=== PATIENT | female | born 1985 | race Caucasian/White ===

== ENCOUNTER 2021-05-08 10:34 | Outpatient (REF) | payer OTHER, SELFPAY ==
[2021-05-08 13:09] LABS: TSH reflex Free T4 1.12 uIU/mL (0.32-4.0)
[2021-05-09 00:05] LABS: CT PCR NOT DETECTED (Not Detect.); NG PCR NOT DETECTED (Not Detect.)
[2021-05-09 08:55] LABS: Syphilis Screen Nonreactive (Nonreactive)
[2021-05-09 09:12] LABS: BV Int Neg Control Negative (Negative); BV Int Pos Control Positive (Positive)
[2021-05-09 09:15] LABS: HIV AB/AG Nonreactive (Nonreactive); HIV Num 1 0.05 S/CO (0.00-0.99)
[2021-05-09 09:52] LABS: HBsAGNum1 0.18 S/CO (0.00-0.99); Hepatitis B Surface Antigen Negative (Negative)
[2021-05-12 00:52] LABS: HPV mRNA E6/E7 rflx Not Detected (Not Detected)
== END 2021-05-08 10:35 | disposition home or self-care (01) ==
LOC: HO.LAB 10:34
PROVIDERS: PCP Physician Assistant; Visit Provider Obstetrics & Gynecology
DX: Z01.419 Encounter for gynecological examination (general) (routine) without abnormal findings (principal); Z11.51 Encounter for screening for human papillomavirus (HPV); Z31.69 Encounter for other general counseling and advice on procreation
CPT/HCPCS: 36415; 84443; 86780; 87340; 87389; 87480; 87491; 87510; 87591; 87624; 87660; 88142

== ENCOUNTER 2022-02-08 13:42 | Outpatient (REF) | payer OTHER, SELFPAY ==
[2022-02-08 14:26] LABS: Appearance Urine CLOUDY; Color Urine ORANGE; Leukocyte Esterase Urine 3+ (NEG); Nitrite Urine POS (NEG); Specific Gravity - Urine 1.015 (1.005-1.025); UACC Culture Trigger YES; Urine Blood 1+ (NEG)
[2022-02-08 14:37] LABS: Bacteria Urine 3+ /LPF; Squamous Epithelial Cell Urine 2+ /LPF; WBC Urine 50-75 /HPF (0-4)
== END 2022-02-08 13:43 | disposition home or self-care (01) ==
LOC: HO.LAB 13:42
PROVIDERS: PCP Physician Assistant; Visit Provider Internal Medicine
DX: R30.0 Dysuria (principal)
CPT/HCPCS: 81001; 87086; 87088; 87186

== ENCOUNTER 2022-02-14 09:06 | Outpatient (REF) | payer OTHER, SELFPAY ==
[2022-02-14 10:05] LABS: Hematocrit 39.2 % (37.0-47.0); Hemoglobin 12.4 g/dl (12.0-16.0); Mean Corpuscular HGB Conc 31.6 g/dl (31.0-35.0); Mean Corpuscular Hemoglobin 24.7 pg (27.0-33.0); Mean Corpuscular Volume 77.9 fL (80.0-98.0); Platelet Count 286 X10*3/uL (160-400); Red Blood Count 5.03 X10*6/uL (4.20-5.50); Red Cell Distribution Width 13.1 % (11.0-16.0); White Blood Count 6.9 X10*3/uL (4.8-10.8)
[2022-02-14 10:37] LABS: Estimated Average Glucose 105 mg/dL; Hemoglobin A1c % 5.3 %
[2022-02-14 14:06] LABS: Alanine Aminotransferase 11 U/L (0-31); Albumin Level 4.4 g/dL (3.5-5.0); Alkaline Phosphatase 79 U/L (39-117); Anion Gap 12 (12-20); Aspartate Amino Transferase 14 U/L (5-31); Bilirubin Total 0.8 mg/dL (0.0-1.0); Blood Urea Nitrogen 13 mg/dL (9-16); Calcium 9.4 mg/dL (8.4-10.2); Carbon Dioxide 25 mmol/L (22-29); Chloride 105 mmol/L (96-108); Estimated Glomerular Filt Rate > 60; Glucose Fasting 89 mg/dL (60-99); Potassium 4.3 mmol/L (3.3-5.1); Sodium 138 mmol/L (135-145); Total Protein 7.4 g/dL (6.5-8.0)
[2022-02-14 14:26] LABS: TSH reflex Free T4 1.62 uIU/mL (0.32-4.0)
== END 2022-02-14 09:07 | disposition home or self-care (01) ==
LOC: HO.LAB 09:06
PROVIDERS: PCP Physician Assistant; Visit Provider Internal Medicine
DX: I10 Essential (primary) hypertension (principal); R30.0 Dysuria; Z13.1 Encounter for screening for diabetes mellitus; Z13.29 Encounter for screening for other suspected endocrine disorder
CPT/HCPCS: 36415; 80053; 83036; 84443; 85027

== ENCOUNTER → 2023-01-30 13:23 | Outpatient (BNVA) | payer OTHER, SELFPAY | PROVIDERS: PCP Physician Assistant; Visit Provider Advanced Practice Midwife | DX: Z13.89 Encounter for screening for other disorder (principal) ==

== ENCOUNTER 2023-06-13 10:58 | Outpatient (AMB) | payer OTHER, SELFPAY ==
[2023-06-13 10:14] VITALS: BP 100/68; PULSE 81; O2SAT 99; BMI 25.8
--- NOTE | 2023-06-13 10:14 | MHC.PC.OV ---
Vital Signs 06/13/23 10:14 Height 5 ft 1 in Blood Pressure Location Lt brachial Position Sitting Pulse Source Pulse Oximeter Oxygen Delivery Method Room Air Intake Visit Reasons: PE Web Interface Developer Required: No Accompanied by: Self / Same As Patient Allergies povidone-iodine [From BETADINE] Allergy (Unknown, Verified 06/13/23 10:14) edema shellfish derived Allergy (Unknown, Verified 06/13/23 10:14) edema soap [From BETADINE] Allergy (Unknown, Verified 06/13/23 10:14) due to shellfish allergy, told not to use it seasonal/dogs Allergy (Unknown, Uncoded 01/30/23 13:33) Unknown Tobacco use date assessed: 06/13/23 Dental Screening Dental Screen Date: 06/13/23 COUNTS INCLUDE 234 BEDS AT THE [facility] Medical History (Updated 01/30/23 @ 14:24 by Rocio Dawn CNM) Anxiety Endometrial polyp Surgical History History of wisdom tooth extraction Family History Father Hypertension Diabetes PTSD (post-traumatic stress disorder) Hyperlipidemia Mother Hyperlipidemia Maternal Grandfather Cancer Daughter In good health Sister No problems noted. Brother In good health Social History Housing: House Alcohol intake: never Patient Tobacco Use Status: Never used Tobacco e-Cigarette/Vaping Use: Never Used service: No Current occupational status: employed Current occupation: [employer] Gender identity: Female Cognitive needs: No Hearing needs: No Vision needs: No Female Reproductive History Menstrual Age of Menarche: 14 Questionnaire PHQ-9 Over the last 2 weeks, how often have you been bothered by any of the following problems? 1. Little interest or pleasure in doing things: not at all 2. Feeling down, depressed, or hopeless: not at all 3. Trouble falling or staying asleep, or sleeping too much: not at all 4. Feeling tired or having little energy: not at all 5. Poor appetite or overeating: not at all 6. Feeling bad about yourself - or that you are a failure or have let yourself or your family down: not at all 7. Trouble concentrating on things, such as reading the newspaper or watching television: not at all 8. Moving or speaking so slowly that other people could have noticed. Or the opposite - being so fidgety or restless that you have been moving around a lot more than usual: not at all 9. Thoughts that you would be better off or of hurting yourself in some way: not at all Total score: 0 Depression Screening Interpretation: Negative Source: Developed by Drs. Ty Dorsey, Sabiha Wisdom, Rhett Nichols and colleagues, with an educational jr from [employer]. Thrive Questionnaire Date Thrive assessed: 06/13/23 I am a: Patient What is your living situation today?: I have a steady place to live Within the past 12 months, did the food you bought not last and you didn't have the money to get more?: Never true Within the past 12 months, did you worry whether your food would run out before you got money to buy more?: Never true Do you have trouble paying for medicines?: No Do you have trouble getting transportation to medical appointments?: No Do you have trouble paying your heating and electricity bill?: No Do you have trouble taking care of your child, family member or friend?: No Do you have trouble with day-to-day activities such as bathing, preparing meals, shopping, managing finances, etc.?: No Are you currently unemployed and looking for a job?: No Are you interested in more education?: No Please select the resources that you would like help with: None Currently or been in a relationship where the following occur: no concerns reported AUDIT C Alcohol Use Questionnaire (AUDIT-C) 1. How often do you have a drink containing alcohol?: Never Total Score: 0 ELIU-7 AMB Questionnaire ELIU-7 Date ELIU - 7 assessed: 06/13/23 Feeling nervous, anxious, or on edge: 0 = Not at all Not being able to stop or control worryin = Not at all Worrying too much about different things: 0 = Not at all Trouble relaxin = Not at all Being so restless that it is hard to sit still: 0 = Not at all Becoming easily annoyed or irritable: 0 = Not at all Feeling afraid as if something awful might happen: 0 = Not at all Total ELIU-7 score (0-4 normal; 5-9 mild; 10-14 moderate; 15-21 severe): 0 Source: Developed by Drs. Ty Dorsey, Sabiha Wisdom, Rhett Nichols and colleagues, with an educational jr from [employer]. Physical exam (Primary Care) Vital Signs: Oxygen Delivery Method Room Air 06/13/23 10:14 Tobacco/Smoking Status: Tobacco use Status Tobacco use date assessed 06/13/23 06/13/23 10:21 Patient Tobacco Use Status Never used Tobacco 06/13/23 10:21 e-Cigarette/Vaping Use Never Used 06/13/23 10:21 PHQ-9: PHQ-9 Score PHQ-9: Total score 0 06/13/23 10:21 Depression Screening Interpretation: Negative Thrive Assessment: Date of Thrive Assessment Date Thrive assessed 06/13/23 06/13/23 10:21 Currently or been in a relationship where the following occur: no concerns reported Coding Diagnoses
--- NOTE | 2023-06-13 10:59 | A.OFFPC_ITS ---
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 Required: No Accompanied by: Self / Same As Patient Allergies povidone-iodine [From BETADINE] Allergy (Unknown, Verified 06/13/23 11:13) edema shellfish derived Allergy (Unknown, Verified 06/13/23 11:13) edema soap [From BETADINE] Allergy (Unknown, Verified 06/13/23 11:13) due to shellfish allergy, told not to use it seasonal/dogs Allergy (Unknown, Uncoded 01/30/23 13:33) Unknown Medication List - Last Reconciled 06/13/23 by CARLOS Santos No Known Home Meds Tobacco use date assessed: 06/13/23 Dental Screening Dental Screen Date: 06/13/23 Did you have a dental visit in the last 12 months?: Yes Did you have a dental problem in the last 6 months where you did not have access to dental care?: No Was dental information given to patient?: Patient has dentist HPI HPI Comments History of Present Illness Details 38-year-old female past medical history significant for anxiety. Patient of [place] last seen in August 2021. Patient presents today for physical exam. Patient denies any acute complaints. 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 Patient advised to drop form off and I can complete this for her form Pap smear: March 2023 Eye exam: 2 years ago. [facility] Medical History Anxiety Endometrial polyp Surgical History History of wisdom tooth extraction Family History Father Hypertension Diabetes PTSD (post-traumatic stress disorder) Hyperlipidemia Mother Hyperlipidemia Maternal Grandfather Cancer Daughter In good health Sister No problems noted. Brother In good health Social History (Reviewed 06/13/23 @ 11:14 by MARIANO Santos Housing: House Alcohol intake: never Patient Tobacco Use Status: Never used Tobacco e-Cigarette/Vaping Use: Never Used service: No Current occupational status: employed Current occupation: [employer] Gender identity: Female Cognitive needs: No Hearing needs: No Vision needs: No Female Reproductive History Menstrual Age of Menarche: 14 Questionnaire PHQ-9 Over the last 2 weeks, how often have you been bothered by any of the following problems? 1. Little interest or pleasure in doing things: not at all 2. Feeling down, depressed, or hopeless: not at all 3. Trouble falling or staying asleep, or sleeping too much: not at all 4. Feeling tired or having little energy: not at all 5. Poor appetite or overeating: not at all 6. Feeling bad about yourself - or that you are a failure or have let yourself or your family down: not at all 7. Trouble concentrating on things, such as reading the newspaper or watching television: not at all 8. Moving or speaking so slowly that other people could have noticed. Or the opposite - being so fidgety or restless that you have been moving around a lot more than usual: not at all 9. Thoughts that you would be better off or of hurting yourself in some way: not at all Total score: 0 Depression Screening Interpretation: Negative Source: Developed by Drs. Ty Dorsey, Sabiha Wisdom, Rhett Nichols and colleagues, with an educational rj from [employer]. Thrive Questionnaire Date Thrive assessed: 06/13/23 I am a: Patient What is your living situation today?: I have a steady place to live Within the past 12 months, did the food you bought not last and you didn't have the money to get more?: Never true Within the past 12 months, did you worry whether your food would run out before you got money to buy more?: Never true Do you have trouble paying for medicines?: No Do you have trouble getting transportation to medical appointments?: No Do you have trouble paying your heating and electricity bill?: No Do you have trouble taking care of your child, family member or friend?: No Do you have trouble with day-to-day activities such as bathing, preparing meals, shopping, managing finances, etc.?: No Are you currently unemployed and looking for a job?: No Are you interested in more education?: No Please select the resources that you would like help with: None Currently or been in a relationship where the following occur: no concerns reported AUDIT C Alcohol Use Questionnaire (AUDIT-C) 1. How often do you have a drink containing alcohol?: Never Total Score: 0 ELIU-7 AMB Questionnaire ELIU-7 Date ELIU - 7 assessed: 06/13/23 Feeling nervous, anxious, or on edge: 0 = Not at all Not being able to stop or control worryin = Not at all Worrying too much about different things: 0 = Not at all Trouble relaxin = Not at all Being so restless that it is hard to sit still: 0 = Not at all Becoming easily annoyed or irritable: 0 = Not at all Feeling afraid as if something awful might happen: 0 = Not at all Total ELIU-7 score (0-4 normal; 5-9 mild; 10-14 moderate; 15-21 severe): 0 Source: Developed by Drs. Ty Dorsey, Sabiha Wisdom, Rhett Nichols and colleagues, with an educational jr from [employer]. Review of Systems Const Denies chills, Denies fatigue, Denies fever(s) and Denies poor appetite Eyes Denies no additional complaints ENT Reports Normal hearing present Card Denies chest pain, Denies syncope, Denies rapid heart rate and Denies dyspnea Resp Denies cough and Denies dyspnea GI Denies change in stool character, Denies constipation, Denies diarrhea, Denies nausea and Denies vomiting Denies urinary frequency, Denies dysuria and Denies urinary urgency Neuro Reports Normal hearing present, Denies confusion and Denies syncope Psych Denies confusion Endo Denies fatigue Physical exam (Primary Care) Vital Signs: Last Vital Signs Pulse 81 06/13/23 10:14 BP 100/68 06/13/23 10:14 Pulse Ox 99 06/13/23 10:14 Oxygen Delivery Method Room Air 06/13/23 10:14 BMI result Body Mass Index 25.8 Tobacco/Smoking Status: Tobacco use Status Tobacco use date assessed 06/13/23 06/13/23 11:04 Patient Tobacco Use Status Never used Tobacco 06/13/23 11:04 e-Cigarette/Vaping Use Never Used 06/13/23 11:04 PHQ-9: PHQ-9 Score PHQ-9: Total score 0 06/13/23 11:14 Depression Screening Interpretation: Negative Thrive Assessment: Date of Thrive Assessment Date Thrive assessed 06/13/23 06/13/23 11:04 Currently or been in a relationship where the following occur: no concerns reported Const General: No confusion Orientation/consciousness: No confusion HENMT Head: Yes normocephalic and Yes atraumatic Ears: external ears normal and TM's normal bilaterally General nose exam: Normal external nose present and Normal nasal mucous membranes and turbinates present Face and sinus: Yes normal facial exam and Yes sinuses nontender Mouth: moist mucous membranes Throat: Yes tonsils normal Eyes Conjunctivae: conjunctivae normal Sclerae: sclerae normal Pupils: Equal, round and reactive pupils present and Pupils normal by confrontation EOM: EOMs intact bilaterally Direct Ophthalmoscopy: normal light reflex Neck Neck: Yes no lymphadenopathy and Yes supple Thyroid: Thyroid normal Chest Chest palpation & inspection: normal inspection of the chest Resp Effort & Inspection: normal respiratory effort Auscultation: clear to auscultation bilaterally, no crackles, no rhonchi and no wheezes Cardio Rate: regular rate Rhythm: regular rhythm Peripheral pulses: radial pulses present and dorsalis pedis present GI Inspection: Yes normal to inspection Palpation (GI): Soft to palpation, nontender and No hepatosplenomegaly present Auscultation: normoactive bowel sounds Skin General skin exam: no rashes or lesions noted Neuro General: No confusion Cranial nerves: Yes Equal, round and reactive pupils present and Yes Normal hearing present Cognition (Neuro): normal cognition Gait exam (Neuro): Normal gait present Motor exam (neuro): 5/5 motor strength present throughout Deep tendon reflexes (DTR's): Right brachioradialis reflex intensity grade: 2+, Left brachioradialis reflex intensity grade: 2+, Right patellar reflex intensity grade: 2+ and Left patellar reflex intensity grade: 2+ Extrem General: No edema Assessment and Plan Assessment & Plan (1) Annual physical exam: Code(s): Z00.00 - Encounter for general adult medical examination without abnormal findings Plan: Fasting labs ordered as well as varicella titer insure 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 (2) Screening for diabetes mellitus (DM): Code(s): Z13.1 - Encounter for screening for diabetes mellitus Plan Follow-up in 1 year. Orders: Orders Comprehensive [place]. Panel Fast Today Z13.1 - Encounter for screening for diabetes mellitus Lipid Panel Today Z13.220 - Encounter for screening for lipoid disorders TSH reflex Free T4 Today Z13.29 - Encounter for screening for other suspected endocrine disorder Complete Blood Count Auto Diff Today Z13.0 - Encounter for screening for diseases of the blood and blood-forming organs and certain disorders involving the immune mechanism Varicella IgG Antibody Today Z01.84 - Encounter for antibody response examination Coding Level of Care Code Est Pt Prev Care 18-39y(80446) Diagnoses Annual physical exam Z00.00 Screening for diabetes mellitus (DM) Z13.1
== END 2023-06-13 11:28 | disposition home or self-care (01) ==
PROVIDERS: PCP Physician Assistant; Visit Provider Nurse Practitioner Family
DX: Z00.00 Encounter for general adult medical examination without abnormal findings (principal); Z13.1 Encounter for screening for diabetes mellitus
CPT/HCPCS: 99395

== ENCOUNTER 2023-06-13 11:34 | Outpatient (REF) | payer OTHER, SELFPAY ==
[2023-06-13 11:57] LABS: MANUAL DIFF FLAG NO
[2023-06-13 12:34] LABS: Basophils Percent Auto 0.4 % (0-2); Hematocrit 41.2 % (37.0-47.0); Imm Gran Pct Auto 0.3 % (0.0-0.4); Mean Corpuscular HGB Conc 31.6 g/dl (31.0-35.0); Mean Corpuscular Hemoglobin 24.3 pg (27.0-33.0); Mean Corpuscular Volume 76.9 fL (80.0-98.0); Mean Platelet Volume 11.1 fL (9.4-12.3); Monocytes Percent Auto 10.5 % (2-11); Neutrophils Percent Auto 66.8 % (45-73); Platelet Count 340 X10*3/uL (160-400); Red Blood Count 5.36 X10*6/uL (4.20-5.50); Red Cell Distribution Width 13.2 % (11.0-16.0); White Blood Count 10.9 X10*3/uL (4.8-10.8)
[2023-06-13 12:35] LABS: Eosinophils Absolute Auto 0.3 X10*3/uL (0.0-0.4); Imm Gran Abs Auto 0.03 X10*3/uL (0.00-0.03); Lymphocytes Absolute Auto 2.1 X10*3/uL (1.2-4.9); Monocytes Absolute Auto 1.1 X10*3/uL (0.1-1.2); Neutrophils Absolute Auto 7.3 x10*3/uL (2.0-8.3)
[2023-06-13 13:09] LABS: Alanine Aminotransferase 9 U/L (0-31); Albumin Level 4.4 g/dL (3.5-5.0); Alkaline Phosphatase 90 U/L (39-117); Anion Gap 12 (12-20); Aspartate Amino Transferase 13 U/L (5-31); Bilirubin Total 0.5 mg/dL (0.0-1.0); Blood Urea Nitrogen 10 mg/dL (9-16); Calcium 9.8 mg/dL (8.4-10.2); Carbon Dioxide 26 mmol/L (22-29); Chloride 106 mmol/L (96-108); Cholesterol 258 mg/dL; Estimated Glomerular Filt Rate > 60; Glucose Fasting 89 mg/dL (60-99); HDL Cholesterol 55 mg/dL; LDL Cholesterol Calculated 182 mg/dl; Potassium 4.3 mmol/L (3.3-5.1); Sodium 140 mmol/L (135-145); Total Protein 7.9 g/dL (6.5-8.0); Triglycerides 107 mg/dL
[2023-06-13 13:11] LABS: TSH reflex Free T4 1.62 uIU/mL (0.32-4.0)
[2023-06-16 22:17] LABS: Varicella IgG Antibody >4000.00 index
== END 2023-06-13 11:35 | disposition home or self-care (01) ==
LOC: HO.LAB 11:34
PROVIDERS: PCP Physician Assistant; Visit Provider Nurse Practitioner Family
DX: Z01.84 Encounter for antibody response examination (principal); Z13.29 Encounter for screening for other suspected endocrine disorder; Z13.0 Encounter for screening for diseases of the blood and blood-forming organs and certain disorders involving the immune mechanism; Z13.220 Encounter for screening for lipoid disorders; E78.5 Hyperlipidemia, unspecified
CPT/HCPCS: 36415; 80053; 80061; 84443; 85025; 86787

== ENCOUNTER 2024-01-13 13:01 | Outpatient (AMB) | payer OTHER, SELFPAY ==
--- NOTE | 2024-01-13 13:08 | MHC.OFFVIS ---
Intake Vital Signs 01/13/24 13:16 Height 5 ft 1 in Weight 134 lb 7.712 oz BMI 25.4 BP 118/72 Intake Visit Reasons: VAG BLEEDING Allergies povidone-iodine [From BETADINE] Allergy (Unknown, Verified 06/13/23 11:13) edema shellfish derived Allergy (Unknown, Verified 06/13/23 11:13) edema soap [From BETADINE] Allergy (Unknown, Verified 06/13/23 11:13) due to shellfish allergy, told not to use it seasonal/dogs Allergy (Unknown, Uncoded 01/30/23 13:33) Unknown HPI HPI Comments History of Present Illness Details Presenting complaining of irregular menstrual cycles. Last co testing was in 05/21 was negative [facility] Medical History Endometrial polyp Anxiety Surgical History History of wisdom tooth extraction Family History Father Hypertension Diabetes PTSD (post-traumatic stress disorder) Hyperlipidemia Mother Hyperlipidemia Maternal Grandfather Cancer Daughter In good health Sister No problems noted. Brother In good health Social History Housing: House Alcohol intake: never Patient Tobacco Use Status: Never used Tobacco e-Cigarette/Vaping Use: Never Used service: No Current occupational status: employed Current occupation: [employer] Gender identity: Female Cognitive needs: No Hearing needs: No Vision needs: No Female Reproductive History Menstrual Age of Menarche: 14 Review of Systems Const All systems reviewed & are unremarkable except as noted in HPI and below Physical Exam Chest Breast/axilla inspection: normal inspection of the breasts and normal inspection of the axillae Breast/axilla palpation: normal palpation of the breasts and normal palpation of the axillae General: Yes no CVA tenderness External Female Exam: normal external appearance and normal appearance of the urethra Speculum Exam - Vagina: normal appearance of the vagina, normal palpation, no lesions and no masses Speculum Exam - Cervix: normal appearance of the cervix, normal palpation, no lesions, no masses and nontender Bimanual exam- vagina & uterus: normal bimanual exam, normal palpation, uterine size normal, normal palpation, uterine shape normal, No Cervical tenderness present and non-tender Bimanual Exam- Adnexa, other: normal adnexae Back/Spine/Pelvis Back: no CVA tenderness Results AMB Test Urine AMB Test Urine Negative Last Edit by Eileen Rae CMA on 01/13/24 13:22 Assessment & Plan Assessment & Plan (1) Abnormal uterine bleeding (AUB): Code(s): N93.9 - Abnormal uterine and vaginal bleeding, unspecified Plan: GC and chlamydia taken CBC, TSH, prolactin, HCG, and pelvic ultrasound ordered. Discussed with the patient the different causes of abnormal bleeding including thyroid disorders, uterine and ovarian pathology, endometrial hyperplasia, carcinoma and other potential causes. Discussed with the patient the work up including CBC (to r/o anemia), TSH, prolactin, pelvic Ultrasound, endometrial biopsy to r/o endometrial pathology. All questions answered and the patient verbalized understanding. Instructed the patient to schedule an appointment for an endometrial biopsy in 2 weeks. Orders: Orders AMB HCG Urine Test Today Z32.02 - Encounter for test, result negative HCG Quantitative Today N93.9 - Abnormal uterine and vaginal bleeding, unspecified US pelvic and transvaginal Today N93.9 - Abnormal uterine and vaginal bleeding, unspecified Complete Blood Count no Diff Today N93.9 - Abnormal uterine and vaginal bleeding, unspecified TSH reflex Free T4 Today N93.9 - Abnormal uterine and vaginal bleeding, unspecified Prolactin Today N93.9 - Abnormal uterine and vaginal bleeding, unspecified Coding Level of Care Code Est Pt Level 3 (15657) Diagnoses Abnormal uterine bleeding (AUB) N93.9
[2024-01-13 13:16] VITALS: BP 118/72; BMI 25.4
== END 2024-01-13 13:30 | disposition home or self-care (01) ==
LOC: HO.HWS 13:01
PROVIDERS: PCP Physician Assistant; Visit Provider Obstetrics & Gynecology
DX: N93.9 Abnormal uterine and vaginal bleeding, unspecified (principal); Z32.02 Encounter for pregnancy test, result negative
CPT/HCPCS: 99213

== ENCOUNTER 2024-01-13 13:01 | Outpatient (REF) | payer OTHER, SELFPAY | END 2024-01-13 13:02 | disposition home or self-care (01) | LOC: HO.LNP 13:01 | PROVIDERS: PCP Physician Assistant; Visit Provider Obstetrics & Gynecology | DX: N93.9 Abnormal uterine and vaginal bleeding, unspecified (principal) | CPT/HCPCS: 81025 ==

== ENCOUNTER 2024-01-13 13:34 | Outpatient (REF) | payer OTHER, SELFPAY ==
[2024-01-13 14:20] LABS: Hematocrit 41.1 % (37.0-47.0); Hemoglobin 13.4 g/dl (12.0-16.0); Mean Corpuscular HGB Conc 32.6 g/dl (31.0-35.0); Mean Corpuscular Hemoglobin 24.9 pg (27.0-33.0); Mean Corpuscular Volume 76.4 fL (80.0-98.0); Platelet Count 316 X10*3/uL (160-400); Red Blood Count 5.38 X10*6/uL (4.20-5.50); Red Cell Distribution Width 13.5 % (11.0-16.0); White Blood Count 7.7 X10*3/uL (4.8-10.8)
[2024-01-13 15:00] LABS: HCG Quantitative < 2 mIU/mL
[2024-01-13 18:26] LABS: CT PCR NOT DETECTED (Not Detect.); NG PCR NOT DETECTED (Not Detect.)
[2024-01-14 05:24] LABS: Prolactin 11.2 ng/mL
== END 2024-01-13 13:35 | disposition home or self-care (01) ==
LOC: HO.LAB 13:34
PROVIDERS: PCP Physician Assistant; Visit Provider Obstetrics & Gynecology
DX: N93.9 Abnormal uterine and vaginal bleeding, unspecified (principal); Z20.2 Contact with and (suspected) exposure to infections with a predominantly sexual mode of transmission
CPT/HCPCS: 0353U; 84146; 84443; 84702; 85027

== ENCOUNTER 2024-01-27 14:58 | Outpatient (REF) | payer OTHER, SELFPAY ==
--- NOTE | ~2024-01-27 | US_ITS ---
EXAMINATION: US PELVIS CLINICAL INFORMATION: Abnormal uterine and vaginal bleeding, last menstrual period possibly August 29, 2024 and correlation with clinical history recommended for confirmation. COMPARISON: None available. TECHNIQUE: Ultrasound of the pelvis is performed using both transabdominal and transvaginal transducers along with Doppler. Transvaginal imaging is performed due to inadequate visualization transabdominally. FINDINGS: Uterus: The uterus is anteverted and measures 8.8 x 3.8 x 4.7 cm. A 0.4 cm cystic structure at the posterior aspect of the uterus. The double wall endometrial thickness is 9 mm. No discrete fibroid appreciated. Adnexa: There is no pelvic ascites or fluid collection. Right ovary measures 2.1 x 0.9 x 1.9 cm. Volume 1.9 mL. Right ovary is unremarkable. Left ovary measures 3.3 x 2.6 x 3.2 cm. Volume 14.4 mL. Left ovarian 2.3 x 1.4 x 1.9 cm cyst appears complex with septations, irregular lilly and low level internal echoes. Small amount of free fluid in the pelvis. Nabothian cysts present. US/US pelvic and transvaginal IMPRESSION: 1. Left ovarian 2.3 cm complex cyst. Recommend follow-up ultrasound in 6-8 weeks. 2. Endometrial thickness 9 mm. 3. A 0.4 cm cystic structure at the posterior aspect of the uterus. 4. Small amount of free fluid in the pelvis.
== END 2024-01-27 14:59 | disposition home or self-care (01) ==
LOC: HO.US 14:58
PROVIDERS: PCP Physician Assistant; Visit Provider Obstetrics & Gynecology
DX: N93.9 Abnormal uterine and vaginal bleeding, unspecified (principal)
CPT/HCPCS: 76830; 76856

== ENCOUNTER 2024-02-19 13:54 | Outpatient (REF) | payer OTHER, SELFPAY ==
[2024-02-19 18:35] LABS: CT PCR NOT DETECTED (Not Detect.); NG PCR NOT DETECTED (Not Detect.)
== END 2024-02-19 13:55 | disposition home or self-care (01) ==
LOC: HO.LNP 13:54
PROVIDERS: PCP Physician Assistant; Visit Provider Obstetrics & Gynecology
DX: N93.9 Abnormal uterine and vaginal bleeding, unspecified (principal); Z20.2 Contact with and (suspected) exposure to infections with a predominantly sexual mode of transmission
CPT/HCPCS: 0353U; 58100; 88305

== ENCOUNTER 2024-02-19 13:54 | Outpatient (AMB) | payer OTHER, SELFPAY ==
--- NOTE | 2024-02-19 13:56 | A.OFFVIS_ITS ---
Intake Vital Signs 02/19/24 14:08 Height 5 ft 1 in Weight 134 lb 7.712 oz BMI 25.4 BP 110/68 Intake Visit Reasons: US follow up/EMB Mitigation Supervisor Required: No Information Interpreted: non-clinical & clinical Health Care Sanitary Technician: Health Care Sanitary Technician Present (Eileen Rae IZABEL) Accompanied by: Self / Same As Patient Allergies povidone-iodine [From BETADINE] Allergy (Unknown, Verified 02/19/24 14:09) edema shellfish derived Allergy (Unknown, Verified 02/19/24 14:09) edema soap [From BETADINE] Allergy (Unknown, Verified 02/19/24 14:09) due to shellfish allergy, told not to use it seasonal/dogs Allergy (Unknown, Uncoded 02/19/24 14:09) Unknown HPI HPI Comments History of Present Illness Details Presenting for EMB [facility] Medical History Endometrial polyp Anxiety Surgical History History of wisdom tooth extraction Family History Father Hypertension Diabetes PTSD (post-traumatic stress disorder) Hyperlipidemia Mother Hyperlipidemia Maternal Grandfather Cancer Daughter In good health Sister No problems noted. Brother In good health Social History Housing: House Alcohol intake: never Patient Tobacco Use Status: Never used Tobacco e-Cigarette/Vaping Use: Never Used service: No Current occupational status: employed Current occupation: [employer] Gender identity: Female Cognitive needs: No Hearing needs: No Vision needs: No Female Reproductive History Menstrual Age of Menarche: 14 Review of Systems Const All systems reviewed & are unremarkable except as noted in HPI and below Reports as per HPI and Reports no additional complaints GI Reports no additional complaints Reports no additional complaints Office Procedures Endometrial Biopsy Details: The patient was counseled regarding the indication and benefits of endometrial sampling to rule out endometrial pathology including not limited to endometrial hyperplasia or endometrial cancer and others; The alternatives (Either do nothing vs. hysteroscopy D&C) & the risks were discussed with the patient including but not limited: pain, uterine perforation, bleeding, infection, pos sible injury to bladder, bowel, ureter, possible need for blood transfusion with all its possible risks. The patient verbalized understanding all questions answered and signed consent. Urine test done in the office was negative The patient was placed into the dorsal lithotomy position; a speculum was inserted in the vagina. Using aseptic technique for the procedure, the cervix was cleansed with Betadine. The anterior lip of the cervix was grasped with a single tooth tenaculum. The uterus was sounded to 7 cm with a 4 mm Pipelle was used. Tissues samples were obtained and placed in formalin, in a patient labeled container and sent to the pathology department. At the end of the procedure, there was minimal bleeding noted The patient tolerated the procedure well and was discharged in good condition with the following instructions: Nothing in the vagina until the bleeding stops. No sex until the bleeding stops, to call if any of the following occurs: fever (>100.4), flu-like symptoms, abdominal pain, heavy bleeding, four smelling vaginal discharge. The patient was instructed to schedule a Follow up appointment in 2 weeks to discuss pathology results of the biopsy and treatment options. This note was generated with a voice recognition program. Some errors may have been overlooked during the review of this note. Sometimes these errors may affect the content or meaning of a given sentence. [id number] Biopsy Assessment & Plan Assessment & Plan (1) Abnormal uterine bleeding (AUB): Code(s): N93.9 - Abnormal uterine and vaginal bleeding, unspecified Plan: EMB done, see procedure note Orders: Orders AMB Endometrial Biopsy Today N93.9 - Abnormal uterine and vaginal bleeding, unspecified Coding Level of Care Code Procedure Only Diagnoses Abnormal uterine bleeding (AUB) N93.9 CPT Codes Endometrial Biopsy - CPT: 59990-[id number] Biopsy ([id number])
[2024-02-19 14:08] VITALS: BP 110/68; BMI 25.4
== END 2024-02-19 14:18 | disposition home or self-care (01) ==
LOC: HO.HWS 13:54
PROVIDERS: PCP Physician Assistant; Visit Provider Obstetrics & Gynecology
DX: N93.9 Abnormal uterine and vaginal bleeding, unspecified (principal)
CPT/HCPCS: 58100

== ENCOUNTER 2024-03-03 14:28 | Outpatient (AMB) | payer OTHER, SELFPAY ==
--- NOTE | 2024-03-03 12:33 | A.OFFVIS_ITS ---
Intake Intake Visit Reasons: TV EMB/US follow up/ok per Allergies povidone-iodine [From BETADINE] Allergy (Unknown, Verified 02/19/24 14:09) edema shellfish derived Allergy (Unknown, Verified 02/19/24 14:09) edema soap [From BETADINE] Allergy (Unknown, Verified 02/19/24 14:09) due to shellfish allergy, told not to use it seasonal/dogs Allergy (Unknown, Uncoded 02/19/24 14:09) Unknown HPI HPI Comments History of Present Illness Details The patient schedule a telehealth visit for follow-up to discuss the results of her abnormal uterine bleeding workup and options of treatment. The following workup was done.: H&H= 13.4/41.1 TSH, prolactin, hCG, GC and chlamydia were negative. Endometrial biopsy pathology showed late proliferative/early secretory endometrium with no evidence of hyperplasia and/or malignancy. Co testing was done in 05/21 was negative. Pelvic ultrasound showed the following: Uterus: The uterus is anteverted and measures 8.8 x 3.8 x 4.7 cm. A 0.4 cm cystic structure at the posterior aspect of the uterus. The double wall endometrial thickness is 9 mm. No discrete fibroid appreciated. Adnexa: There is no pelvic ascites or fluid collection. Right ovary measures 2.1 x 0.9 x 1.9 cm. Volume 1.9 mL. Right ovary is unremarkable. Left ovary measures 3.3 x 2.6 x 3.2 cm. Volume 14.4 mL. Left ovarian 2.3 x 1.4 x 1.9 cm cyst appears complex with septations, irregular lilly and low level internal echoes. Small amount of free fluid in the pelvis. Nabothian cysts present. [facility] Medical History Endometrial polyp Anxiety Surgical History History of wisdom tooth extraction Family History Father Hypertension Diabetes PTSD (post-traumatic stress disorder) Hyperlipidemia Mother Hyperlipidemia Maternal Grandfather Cancer Daughter In good health Sister No problems noted. Brother In good health Social History Housing: House Alcohol intake: never Patient Tobacco Use Status: Never used Tobacco e-Cigarette/Vaping Use: Never Used service: No Current occupational status: employed Current occupation: [employer] Gender identity: Female Cognitive needs: No Hearing needs: No Vision needs: No Female Reproductive History Menstrual Age of Menarche: 14 Review of Systems Const All systems reviewed & are unremarkable except as noted in HPI and below Reports as per HPI and Reports no additional complaints GI Reports no additional complaints Reports no additional complaints Assessment & Plan Assessment & Plan (1) Abnormal uterine bleeding (AUB): Code(s): N93.9 - Abnormal uterine and vaginal bleeding, unspecified Plan: Discussed with the patient the results of the work up done and options of treatment including Lysteda, BCP's, Mirena IUD, endometrial ablation and hysterectomy. All pros, cons, risks and benefits if each option was discussed with the patient and the patient decided to hold off any kind of treatment at this point if her menstrual cycle becomes abnormal will call back. All questions answered the patient verbalized understanding. (2) Complex ovarian cyst: Code(s): N83.299 - Other ovarian cyst, unspecified side Plan: Discussed with the patient the complex ovarian cyst by ultrasound. Discussed with the patient the Ultrasound findings, the main limitation of transvaginal ultrasonography alone as a diagnostic tool to distinguish benign from malignant masses relates to its lack of specificity and low positive predictive value for cancer. The differential diagnosis discussed with the patient includes the following but not limited to: benign and malignant gynecological and non-gynecological causes. Discussed with the patient options of treatment including laparoscopy ovarian cystectomy/oophorectomy vs. expectant management with repeat US in repeating pelvic US in 6-12 weeks from previous US. If the ovarian complex cyst is persistent larger and / or more complex looking, will refer to gynecologic Oncology. All pros, cons, risks and benefits of each approach were discussed with the patient including but not limited to a delay in the diagnosis and treatment of ovarian cancer affecting the prognosis; The patient decided to go ahead with expectant management. Instructions given the patient to schedule a 3 months follow-up ultrasound appointment. All questions were answered & the patient verbalized understanding and agreed with the plan. Orders: Orders US pelvic complete 3 Months N83.299 - Other ovarian cyst, unspecified side Telehealth Telehealth Location of provider rendering services: practice address Location of patient: address on file Patient Identification confirmed using: Name, : Yes Telehealth method: video Patient verbally consented to treatment: Yes Patient verbally consented to billing insurance company: Yes Patient informed of any privacy concerns related to visit: Yes Coding Level of Care Code Tele Est Pt Level 1 (25851) Diagnoses Abnormal uterine bleeding (AUB) N93.9 Complex ovarian cyst N83.299
== END 2024-03-03 16:23 | disposition home or self-care (01) ==
LOC: HO.HWS 14:28
PROVIDERS: PCP Physician Assistant; Visit Provider Obstetrics & Gynecology
DX: N93.9 Abnormal uterine and vaginal bleeding, unspecified (principal); N83.299 Other ovarian cyst, unspecified side
CPT/HCPCS: 99211

== ENCOUNTER → 2024-03-03 14:28 | Outpatient (BNVA) | payer OTHER, SELFPAY | PROVIDERS: PCP Physician Assistant; Visit Provider Obstetrics & Gynecology | DX: N83.299 Other ovarian cyst, unspecified side (principal) ==

== ENCOUNTER 2024-06-11 16:30 | Outpatient (REF) | payer OTHER, SELFPAY ==
--- NOTE | ~2024-06-11 | US_ITS ---
EXAMINATION: US PELVIS CLINICAL INFORMATION: Complex ovarian cyst, last menstrual period 1 week ago, denies pain. COMPARISON: 01/27/2024. TECHNIQUE: Transabdominal ultrasound images of the pelvis were obtained. Limited visualization due to bowel gas. FINDINGS: The uterus is anteverted and measures 7.6 x 4.3 x 5.3 cm. Endometrial thickness is 4 mm. No significant free fluid. Right ovary measures 2.2 x 1.3 x 1.2 cm, volume 1.8 mL and is difficult to evaluate due to limited visualization. Left ovary measures 3.6 x 1.8 x 1.6 cm, volume 5.5 mL. Left ovarian 1.4 x 1.1 x 1.3 cm cyst is likely simple. Previous exam demonstrated a 2.3 x 1.4 x 1.9 cm complex left ovarian cyst. There is no specific indication for additional imaging at this time. US/US pelvic complete IMPRESSION: 1. Endometrial thickness is 4 mm. 2. Limited visualization of the right ovary. 3. Left ovarian 1.4 x 1.1 x 1.3 cm cyst is likely simple. Previous exam demonstrated a 2.3 x 1.4 x 1.9 cm complex left ovarian cyst. There is no specific indication for additional imaging at this time. 4. Limited visualization due to bowel gas. Only transabdominal ultrasound images were obtained. Transvaginal ultrasound images are recommended for better visualization.
== END 2024-06-11 16:31 | disposition home or self-care (01) ==
LOC: HO.US 16:30
PROVIDERS: PCP Physician Assistant; Visit Provider Obstetrics & Gynecology
DX: N83.299 Other ovarian cyst, unspecified side (principal)
CPT/HCPCS: 76856

== ENCOUNTER 2024-06-22 16:03 | Outpatient (AMB) | payer OTHER, SELFPAY ==
[2024-06-22 16:13] VITALS: BP 92/68; PULSE 80; O2SAT 98; BMI 26.2
--- NOTE | 2024-06-22 16:13 | A.OFFPC_ITS ---
Vital Signs 06/22/24 16:13 Height 5 ft 1 in Weight 138 lb 8 oz BMI 26.2 BP 92/68 Blood Pressure Location Lt brachial Position Sitting Pulse 80 Pulse Source Pulse Oximeter Pulse Oximetry (%) 98 Oxygen Delivery Method Room Air Intake Visit Reasons: pe Intake Note: Patient is here today for a physical. 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: No Accompanied by: Self / Same As Patient Is last menstrual period known: Yes Last menstrual period: 06/03/24 Allergies povidone-iodine [From BETADINE] Allergy (Unknown, Verified 06/22/24 16:23) edema shellfish derived Allergy (Unknown, Verified 06/22/24 16:23) edema soap [From BETADINE] Allergy (Unknown, Verified 06/22/24 16:23) due to shellfish allergy, told not to use it seasonal/dogs Allergy (Unknown, Uncoded 06/22/24 16:23) Unknown Medication List - Last Reconciled 06/22/24 by Pablo Nj PA-C No Known Home Meds Tobacco use date assessed: 06/22/24 Dental Screening Dental Screen Date: 06/22/24 Did you have a dental visit in the last 12 months?: Yes Did you have a dental problem in the last 6 months where you did not have access to dental care?: No Was dental information given to patient?: Patient has dentist HPI pe HPI Details patient is a 39 old female here today for routine annual physical. 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 no physical complaints today .. Hyperlipidemia: Most recent lipid panel showing elevated total cholesterol and LDL. She has been working on dietary modifications. She admits to not being as physically active as she would like. PLAN: Will continue working on dietary modifications. Will recheck lipid panel, goal LDL to be below 190 PATROL CAPTAIN: Continues to follow [place] rounder and backer for abnormal uterine bleeding in her complex ovarian cyst.. Vaccine: UTD with Tdap, declines COVID and flu vaccines at this time. [facility] Medical History Endometrial polyp Anxiety Surgical History History of wisdom tooth extraction Family History Father Hypertension Diabetes PTSD (post-traumatic stress disorder) Hyperlipidemia Mother Hyperlipidemia Maternal Grandfather Cancer Daughter In good health Sister No problems noted. 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 Gender identity: Female Cognitive needs: No Hearing needs: No Vision needs: No Female Reproductive History Menstrual Age of Menarche: 14 Date of last menstrual period: 06/03/24 Questionnaire PHQ-9 Over the last 2 weeks, how often have you been bothered by any of the following problems? 1. Little interest or pleasure in doing things: not at all 2. Feeling down, depressed, or hopeless: not at all 3. Trouble falling or staying asleep, or sleeping too much: not at all 4. Feeling tired or having little energy: not at all 5. Poor appetite or overeating: not at all 6. Feeling bad about yourself - or that you are a failure or have let yourself or your family down: not at all 7. Trouble concentrating on things, such as reading the newspaper or watching television: not at all 8. Moving or speaking so slowly that other people could have noticed. Or the opposite - being so fidgety or restless that you have been moving around a lot more than usual: not at all 9. Thoughts that you would be better off or of hurting yourself in some way: not at all Total score: 0 Depression Screening Interpretation: Negative Depression Screening Done: Yes 68117 - PHQ-9 Billing: Yes Source: Developed by Drs. Ty Dorsey, Sabiha Wisdom, Rhett Nichols and colleagues, with an educational jr from [employer]. Thrive Questionnaire Date Thrive assessed: 06/22/24 I am a: Patient What is your living situation today?: I have a steady place to live Within the past 12 months, did the food you bought not last and you didn't have the money to get more?: Never true Within the past 12 months, did you worry whether your food would run out before you got money to buy more?: Never true Do you have trouble paying for medicines?: No Do you have trouble getting transportation to medical appointments?: No Do you have trouble paying your heating and electricity bill?: No Do you have trouble taking care of your child, family member or friend?: No Do you have trouble with day-to-day activities such as bathing, preparing meals, shopping, managing finances, etc.?: No Are you currently unemployed and looking for a job?: No Are you interested in more education?: No Please select the resources that you would like help with: None Currently or been in a relationship where the following occur: No concerns reported THRIVE Score: 0 AUDIT C Alcohol Use Questionnaire (AUDIT-C) 1. How often do you have a drink containing alcohol?: Never 3. How often do you have six or more drinks on one occasion?: Never Total Score: 0 ELIU-7 AMB Questionnaire ELIU-7 Date ELIU - 7 assessed: 06/22/24 Feeling nervous, anxious, or on edge: 0 = Not at all Not being able to stop or control worryin = Not at all Worrying too much about different things: 0 = Not at all Trouble relaxin = Not at all Being so restless that it is hard to sit still: 0 = Not at all Becoming easily annoyed or irritable: 0 = Not at all Feeling afraid as if something awful might happen: 0 = Not at all Total ELIU-7 score (0-4 normal; 5-9 mild; 10-14 moderate; 15-21 severe): 0 Source: Developed by Drs. Ty Dorsey, Sabiha Wisdom, Rhett Nichols and colleagues, with an educational jr from [employer]. ELIU-7 Assessment Billing ELIU-7 Assessment Tool: ELIU-7 Assessment 47974 Review of Systems Const Denies body aches, Denies chills, Denies excessive sweating, Denies fatigue, Denies fever(s) and Denies headache(s) Eyes Denies blurry vision ENT Denies dysphagia, Denies vertigo, Denies dizziness, Denies headache(s), Denies hearing loss and Denies tinnitus Card Denies chest pain, Denies chest pain with activity, Denies syncope, Denies irregular heart rhythm and Denies dyspnea Resp Denies chest congestion, Denies cough, Denies hemoptysis, Denies dyspnea and Denies wheezing GI Denies abdominal pain, Denies melena, Denies hematochezia, Denies coffee ground emesis, Denies dysphagia, Denies diarrhea, Denies nausea and Denies vomiting Denies urinary frequency, Denies dysuria, Denies urinary hesitancy and Denies urinary urgency Musc Denies arthralgias, Denies limited range of motion, Denies muscle cramps and Denies muscle weakness Skin/Breast Denies rash and Denies skin ulcer Neuro Denies Abnormal speech present, Denies confusion, Denies vertigo, Denies dizziness, Denies syncope, Denies headache(s), Denies memory loss and Denies seizure-like activity Psych Denies anxiety, Denies confusion, Denies depression, Denies memory loss, Denies panic attacks and Denies paranoia Endo Denies excessive sweating, Denies fatigue, Denies flushing, Denies polydipsia and Denies polyuria Aller/Immun Denies wheezing Physical exam (Primary Care) Vital Signs: Last Vital Signs Pulse 80 06/22/24 16:13 BP 92/68 06/22/24 16:13 Pulse Ox 98 06/22/24 16:13 Oxygen Delivery Method Room Air 06/22/24 16:13 BMI result Body Mass Index 26.2 Tobacco/Smoking Status: Tobacco use Status Tobacco use date assessed 06/22/24 06/22/24 16:23 Patient Tobacco Use Status Never used Tobacco 06/22/24 16:28 e-Cigarette/Vaping Use Never Used 06/22/24 16:28 PHQ-9: PHQ-9 Score PHQ-9: Total score 0 06/22/24 16:24 Depression Screening Interpretation: Negative Thrive Assessment: Date of Thrive Assessment Date Thrive assessed 06/22/24 06/22/24 16:23 Currently or been in a relationship where the following occur: No concerns repo rted Const General: cooperative, comfortable, no acute distress, alert and awake; No confusion Orientation/consciousness: oriented to person, oriented to place, patient oriented x3 and No confusion HENMT Head: Yes normocephalic Ears: external ears normal and TM's normal bilaterally Face and sinus: No sinus tenderness Mouth: Normal oral and palatal mucosa present and tongue normal Teeth and gingiva: dentition normal and gingiva normal Throat: Yes posterior oropharynx normal, Yes tonsils normal and Yes uvula midline Eyes Conjunctivae: conjunctivae normal Sclerae: sclerae normal Pupils: Equal, round and reactive pupils present EOM: EOMs intact bilaterally Direct Ophthalmoscopy: No no photophobia Neck Neck: Yes no lymphadenopathy, No tender and Yes no JVD Thyroid: Thyroid normal Carotids: no bruits Chest Chest palpation & inspection: no tenderness Resp Effort & Inspection: normal respiratory effort, no audible wheezes, not labored and no stridor Auscultation: no crackles, no rales, no rhonchi and no wheezes Cardio Jugular venous distension: no JVD Rate: regular rate, not bradycardic and not tachycardic Rhythm: regular rhythm Bruits: no carotid bruits Peripheral pulses: Peripheral pulses 2+ throughout GI Inspection: Yes normal to inspection, No abdominal wall ecchymosis and No visible herniation Palpation (GI): Soft to palpation, nontender, no guarding, not rigid and No hepatosplenomegaly present Auscultation: normoactive bowel sounds General: Yes no CVA tenderness Back/Spine/Pelvis Back: no CVA tenderness and No back tenderness Cervical Spine: cervical ROM normal Thoracic/Lumbar Spine: thoracic and lumbar spine normal to inspection, straight leg raise negative bilaterally, No thoraco-lumbar ROM limited and No lumbar spinal tenderness Skin Lesions: no lesions Rashes: no rashes Wounds: no wounds Neuro General: oriented to person, oriented to place, patient oriented x3, CN's II-XI intact bilaterally and No confusion Cranial nerves: Yes Equal, round and reactive pupils present and Yes Normal accommodation reflex present Cognition (Neuro): normal cognition Speech: No Abnormal speech present Gait exam (Neuro): Normal gait present Motor exam (neuro): 5/5 motor strength present throughout Extrem Right upper extremity: full ROM; no cyanosis Left upper extremity: full ROM; no cyanosis Right lower extremity: no edema Left lower extremity: no edema Psych Appearance: grossly normal Mental Status: mental status grossly normal Affect: normal affect Attitude: cooperative Thought process: Normal thought process present Assessment and Plan Assessment & Plan (1) Annual physical exam: Code(s): Z00.00 - Encounter for general adult medical examination without abnormal findings Plan: Fasting labs ordered as well as varicella titer insure 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 (2) Screening for diabetes mellitus (DM): Code(s): Z13.1 - Encounter for screening for diabetes mellitus (3) Hyperlipidemia: Code(s): E78.5 - Hyperlipidemia, unspecified Qualifiers: Hyperlipidemia type: mixed hyperlipidemia Qualified Code(s): E78.2 - Mixed hyperlipidemia Plan: Has a history of hyperlipidemia. Has been somewhat working on dietary modifications. Will check a fasting lipid panel with goal total cholesterol to be below 240 and LDL to be below 190. Otherwise patient does not any cardiovascular risk factors. Plan Follow-up in 1 year. Orders: Orders Lipid Panel 06/22/24 E78.5 - Hyperlipidemia, unspecified Comprehensive [place]. Panel Fast 06/22/24 E78.5 - Hyperlipidemia, unspecified Complete Blood Count no Diff 06/22/24 N83.299 - Other ovarian cyst, unspecified side Patient Instructions: Goal: LDL to be below 190 Barriers: Adherence to healthy eating habits and physical activity Coding Level of Care Code Est Pt Prev Care 18-39y(74427) Diagnoses Annual physical exam Z00.00 Screening for diabetes mellitus (DM) Z13.1 Mixed hyperlipidemia E78.2 Hyperlipidemia type: mixed hyperlipidemia Additional Codes ELIU-7 Assessment Billing - ELIU-7 Assessment Tool: ELIU-7 Assessment [id number] ([id number])
== END 2024-06-22 16:46 | disposition home or self-care (01) ==
PROVIDERS: PCP Physician Assistant; Visit Provider Physician Assistant
DX: Z00.00 Encounter for general adult medical examination without abnormal findings (principal); Z13.1 Encounter for screening for diabetes mellitus; E78.2 Mixed hyperlipidemia
CPT/HCPCS: 99395

== ENCOUNTER 2024-06-30 14:36 | Outpatient (AMB) | payer OTHER, SELFPAY ==
--- NOTE | 2024-06-30 14:37 | A.OFFVIS_ITS ---
Intake Visit Reasons: US follow up Allergies povidone-iodine [From BETADINE] Allergy (Unknown, Verified 06/22/24 16:23) edema shellfish derived Allergy (Unknown, Verified 06/22/24 16:23) edema soap [From BETADINE] Allergy (Unknown, Verified 06/22/24 16:23) due to shellfish allergy, told not to use it seasonal/dogs Allergy (Unknown, Uncoded 06/22/24 16:23) Unknown HPI Comments Details: The patient is scheduled tele health visit as an ultrasound follow-up regarding complex ovarian in 01/24. Ultrasound done on 06/11/2024 showed the following: The uterus is anteverted and measures 7.6 x 4.3 x 5.3 cm. Endometrial thickness is 4 mm. No significant free fluid. Right ovary measures 2.2 x 1.3 x 1.2 cm, volume 1.8 mL and is difficult to evaluate due to limited visualization. Left ovary measures 3.6 x 1.8 x 1.6 cm, volume 5.5 mL. Left ovarian 1.4 x 1.1 x 1.3 cm cyst is likely simple. Previous exam demonstrated a 2.3 x 1.4 x 1.9 cm complex left ovarian cyst. There is no specific indication for additional imaging at this time. The patient is doing well with no complaint [facility] Medical History Endometrial polyp Anxiety Surgical History History of wisdom tooth extraction Family History Father Hypertension Diabetes PTSD (post-traumatic stress disorder) Hyperlipidemia Mother Hyperlipidemia Maternal Grandfather Cancer Daughter In good health Sister No problems noted. 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 Gender identity: Female Cognitive needs: No Hearing needs: No Vision needs: No Female Reproductive History Menstrual Age of Menarche: 14 Review of Systems Const All systems reviewed & are unremarkable except as noted in HPI and below Reports as per HPI and Reports no additional complaints GI Reports no additional complaints Reports no additional complaints Telehealth Telehealth Telehealth Platform: Telephone Location of provider rendering services: practice address Location of patient: address on file Patient Identification confirmed using: Name, : Yes Telehealth method: video Patient verbally consented to treatment: Yes Patient verbally consented to billing insurance company: Yes Patient informed of any privacy concerns related to visit: Yes Assessment & Plan Assessment & Plan (1) Complex ovarian cyst: Code(s): N83.299 - Other ovarian cyst, unspecified side Category: Medical Plan: Discussed the above finding of the ultrasound showing the previous complex ovarian cyst is not seen today. The patient was reassured. All questions answered, the patient verbalized understanding. I spent a total of 20 minutes reviewing the chart, talking to the patient via video and documenting in the medical record. Coding Level of Care Code Tele Est Pt Level 1 (77518) Diagnoses Complex ovarian cyst N83.299
== END 2024-06-30 18:21 ==
LOC: HO.HWS 14:36
PROVIDERS: PCP Physician Assistant; Visit Provider Obstetrics & Gynecology
DX: N83.299 Other ovarian cyst, unspecified side (principal)
CPT/HCPCS: 99211

== ENCOUNTER → 2024-06-30 14:36 | Outpatient (BNVA) | payer OTHER, SELFPAY | PROVIDERS: PCP Physician Assistant; Visit Provider Obstetrics & Gynecology ==

== ENCOUNTER 2024-10-20 15:59 | Outpatient (AMB) | payer OTHER, SELFPAY ==
--- NOTE | 2024-10-20 16:04 | A.OFFVIS_ITS ---
Vital Signs 10/20/24 16:08 Height 5 ft 1 in Weight 135 lb BMI 25.5 BP 110/68 Intake Visit Reasons: annual Supervising Nurse Required: No Information Interpreted: non-clinical & clinical Salesperson Floor Coverings: Salesperson Floor Coverings Present (Eileen Rae IZABEL) Accompanied by: Self / Same As Patient Allergies povidone-iodine [From BETADINE] Allergy (Unknown, Verified 10/20/24 16:08) edema shellfish derived Allergy (Unknown, Verified 10/20/24 16:08) edema soap [From BETADINE] Allergy (Unknown, Verified 10/20/24 16:08) due to shellfish allergy, told not to use it seasonal/dogs Allergy (Unknown, Uncoded 10/20/24 16:08) Unknown Is last menstrual period known: Yes Last menstrual period: 10/13/24 [facility] Comments Details: Presenting for annual exam. No complaints. Last Pap/HPV was negative in 02/21 [facility] Medical History Endometrial polyp Anxiety Surgical History History of wisdom tooth extraction Family History Father Hypertension Diabetes PTSD (post-traumatic stress disorder) Hyperlipidemia Mother Hyperlipidemia Maternal Grandfather Cancer Daughter In good health Sister No problems noted. 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 Gender identity: Female Cognitive needs: No Hearing needs: No Vision needs: No Female Reproductive History Menstrual Age of Menarche: 14 Date of last menstrual period: 10/13/24 Total pregnancies: 1 Full term: 1 Number of Living Children: 1 Date of last pap smear: 05/09/21 Review of Systems Const All systems reviewed & are unremarkable except as noted in HPI and below Card Reports as per HPI Resp Reports as per HPI GI Reports as per HPI and Reports no additional complaints Reports as per HPI Physical Exam Const General: cooperative, healthy appearing and comfortable Chest Chest palpation & inspection: normal inspection of the chest and normal palpation of entire chest wall Breast/axilla inspection: normal inspection of the breasts and normal inspection of the axillae Breast/axilla palpation: normal palpation of the breasts, normal palpation of the axillae and no axillary lymphadenopathy Resp Effort & Inspection: normal respiratory effort Auscultation: clear to auscultation bilaterally Percussion: percussion normal Cardio Palpation: normal PMI Rate: regular rate Rhythm: regular rhythm Heart sounds: no murmurs and no rubs Peripheral pulses: Peripheral pulses 2+ throughout GI Inspection: Yes normal to inspection Palpation (GI): Soft to palpation, nontender, no guarding, not rigid and No hepatosplenomegaly present Percussion: Yes normal to percussion Auscultation: normal bowel sounds Rectal Exam - Female: deferred General: Yes bladder normal to palpation External Female Exam: No lesion Speculum Exam - Vagina: normal appearance of the vagina, normal palpation, normal vaginal discharge and not erythematous Speculum Exam - Cervix: normal appearance of the cervix and normal palpation Bimanual exam- vagina & uterus: normal bimanual exam, normal palpation, uterine size normal, bladder normal to palpation, consistency normal and normal palpation Bimanual Exam- Adnexa, other: normal adnexae, no masses and no tenderness Assessment & Plan Assessment & Plan (1) Well woman exam with routine gynecological exam: Code(s): Z01.419 - Encounter for gynecological examination (general) (routine) without abnormal findings Category: Medical Plan: Cotesting done. Counseled the patient about the recommended dietary allowance of 1000 mg of Calcium & 600 IU of vitamin D. The patient was instructed to perform monthly self-breast exams and to schedule an annual exam in a year; All questions answered and the patient verbalized understanding. Instructed the patient to schedule annual exam in a year Coding Level of Care Code Est Pt Prev Care 18-39y(20790) Diagnoses Well woman exam with routine gynecological exam Z01.419
[2024-10-20 16:08] VITALS: BP 110/68; BMI 25.5
== END 2024-10-20 16:15 | disposition home or self-care (01) ==
LOC: HO.HWS 15:59
PROVIDERS: PCP Physician Assistant; Visit Provider Obstetrics & Gynecology
DX: Z01.419 Encounter for gynecological examination (general) (routine) without abnormal findings (principal)
CPT/HCPCS: 99395

== ENCOUNTER → 2024-10-20 15:59 | Outpatient (BNVA) | payer OTHER, SELFPAY | PROVIDERS: PCP Physician Assistant; Visit Provider Obstetrics & Gynecology ==

== ENCOUNTER 2025-01-20 15:09 | Outpatient (AMB) | payer OTHER, SELFPAY ==
--- NOTE | 2025-01-20 15:09 | A.OFFVIS_ITS ---
Vital Signs 01/20/25 15:12 Height 5 ft 1 in Weight 135 lb BMI 25.5 BP 110/68 Intake Visit Reasons: AUB Orchestra Musician Required: No Orchestra Musician Services: Orchestra Musician Present Information Interpreted: clinical only Mental Health Aides Teacher: Mental Health Aides Teacher Present Allergies povidone-iodine [From BETADINE] Allergy (Unknown, Verified 01/20/25 15:13) edema shellfish derived Allergy (Unknown, Verified 01/20/25 15:13) edema soap [From BETADINE] Allergy (Unknown, Verified 01/20/25 15:13) due to shellfish allergy, told not to use it seasonal/dogs Allergy (Unknown, Uncoded 01/20/25 15:13) Unknown Medication List - Last Reconciled 01/20/25 by Rocio Dawn CNM No Known Home Meds Is last menstrual period known: Yes Last menstrual period: 01/15/25 HPI HPI AUB: Details: Patient is here scheduled as a visit for AUB however it is really that she had 1 period that came late. She normally sees Dr. Nice. Last year she did have some period of bleeding irregularity that was evaluated with an ultrasound and subsequent endometrial biopsy that was negative and a follow-up ultrasound to check on a complex cyst that was seen at 1st ultrasound it had completely resolved and no further follow-up was necessary at that time. Patient gets regular periods she and tried many years ago to pursue fertility investigation and she was told that he had a low sperm count and infertility services were not really covered so it would of been an expensive process and they decided not to pursue it they do not contraceptive but if they got they would be happy. So this month her period was expected on January 01 and it did not come until January 15 she did repeated tests and they were all negative and she did not have any different symptoms either. She said the period was no different and she did not have any other symptoms that would make her thinks she might be or anything else. she is not exactly sure when she ovulates, but she does track it on the jalen and feels that symptoms generally line up with what she sees on her jalen. She has noticed decreased li tarah over the last year so. She thinks she is in otherwise good health and she sees petty Nj for primary care she is due to get primary care blood work done but had eaten when she went to the lab so it needed to put off. [facility] Medical History Endometrial polyp Anxiety Surgical History History of wisdom tooth extraction Family History Father Hypertension Diabetes PTSD (post-traumatic stress disorder) Hyperlipidemia Mother Hyperlipidemia Maternal Grandfather Cancer Daughter In good health Sister No problems noted. 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 Gender identity: Female Cognitive needs: No Hearing needs: No Vision needs: No Female Reproductive History Menstrual Age of Menarche: 14 Duration of menses: other Date of last menstrual period: 01/15/25 control method: none Total pregnancies: 1 Full term: 1 Date of last pap smear: 05/01/21 (negative) Physical Exam Vital Signs: Last Vital Signs BP 110/68 01/20/25 15:12 BMI result Body Mass Index 25.5 Const Other: Exam deferred today. Results Reviewed Results Reviewed: Reviewed visits with gynecology in the last year to 2 years, reviewed to previous ultrasounds reviewed endometrial biopsy review previous labs that were done by gynecology and primary care. Also reviewed previous normal Pap in 2020 she would be due for her next Pap in 2025. Also reviewed the previous visit notes and refreshed patient's memory of conversations with previous providers. Assessment & Plan Assessment & Plan (1) Late menses: Code(s): N92.6 - Irregular menstruation, unspecified Category: Medical Plan Patient is here scheduled as a visit for AUB however it is really that she had 1 period that came late. She normally sees Dr. Nice. Last year she did have some period of bleeding irregularity that was evaluated with an ultrasound and subsequent endometrial biopsy that was negative and a follow-up ultrasound to check on a complex cyst that was seen at 1st ultrasound it had completely resolved and no further follow-up was necessary at that time. Patient gets regular periods she and tried many years ago to pursue fertility investigation and she was told that he had a low sperm count and infertility services were not really covered so it would of been an expensive process and they decided not to pursue it they do not contraceptive but if they got they would be happy. So this month her period was expected on January 01 and it did not come until January 15 she did repeated tests and they were all negative and she did not have any different symptoms either she is not exactly sure when she ovulates but she does track it on the jalen and feels that is symptoms generally line up with what she is sees on her jalen. She has noticed decreased libido over the last year so. She thinks she is in otherwise good health and she sees petty Nj for primary care she is due to get primary care blood work done but had eaten when she went to the lab so it needed to put off. I reviewed patient's symptoms and history and reviewed with her previous exams previous visits and discussions that took place with other providers and reviewed her previous ultrasounds previous lab work including TSH prolactin last year were all negative and endometrial biopsy that was negative as well. She is not having any symptomology that requires any further evaluation at this time. Her thyroid level was within the normal level as was the prolactin. She is not anemic her periods are not excessively heavy they are generally regular just that this 1 was late and hers right on time. Discussed that it is common for to miss a period occasionally and often it means that she either did not ovulate or ovulated late in the cycle,. Also discussed other lucero menopausal types of symptoms that she may expect going forward in the coming decade increased vaginal dryness decreasing libido etc. discussed all the ways that 1 can benefit from increasing self-care and taking advantage of normal cyclic changes. I printed her lab orders for her so that she could get them done in the lab of her choice as she had contemplated going to different lab and she had lost the original paper orders. She will be following up with her primary care provider and we will see her for annual exams. Follow-up p.r.n. and for regularly scheduled annual Get fasting PCC labs at her convenience form printed for her Coding Level of Care Code Est Pt Level 3 (68746) Diagnoses Late menses N92.6 Time Spent (min) 40 Comment 100% spent reviewing patient's symptoms history previous evals and making plan for no furt
[2025-01-20 15:12] VITALS: BP 110/68; BMI 25.5
== END 2025-01-20 16:58 | disposition home or self-care (01) ==
PROVIDERS: PCP Physician Assistant; Visit Provider Advanced Practice Midwife
DX: N92.6 Irregular menstruation, unspecified (principal)
CPT/HCPCS: 99213

== ENCOUNTER → 2025-01-20 15:09 | Outpatient (BNVA) | payer OTHER, SELFPAY | PROVIDERS: PCP Physician Assistant; Visit Provider Advanced Practice Midwife ==

== ENCOUNTER 2025-06-23 16:02 | Outpatient (AMB) | payer OTHER, SELFPAY ==
[2025-06-23 16:08] VITALS: BP 98/64; PULSE 95; O2SAT 98; BMI 25.9
--- NOTE | 2025-06-23 16:08 | MHC.PC.OV ---
Vital Signs 06/23/25 16:08 Height 5 ft 1 in Weight 137 lb 4 oz BMI 25.9 BP 98/64 Blood Pressure Location Lt brachial Position Sitting Pulse 95 Pulse Source Pulse Oximeter Pulse Oximetry (%) 98 Oxygen Delivery Method Room Air Intake Visit Reasons: Annual Exam Child Advocate Required: No Accompanied by: Self / Same As Patient Allergies povidone-iodine (From BETADINE) Allergy (Unknown, Verified 06/23/25 16:33) edema shellfish derived Allergy (Unknown, Verified 06/23/25 16:33) edema soap (From BETADINE) Allergy (Unknown, Verified 06/23/25 16:33) due to shellfish allergy, told not to use it seasonal/dogs Allergy (Unknown, Uncoded 06/23/25 16:33) Unknown Medication List - Last Reconciled 06/23/25 by Pablo Nj PA-C No Known Home Meds Tobacco use date assessed: 06/23/25 Dental Screening Dental Screen Date: 06/23/25 Did you have a dental visit in the last 12 months?: Yes Did you have a dental problem in the last 6 months where you did not have access to dental care?: No Was dental information given to patient?: Patient has dentist HPI Annual Exam HPI Details patient is a 40 old female here today for routine annual physical. 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 no physical complaints today. .. Hyperlipidemia: Most recent lipid panel showing elevated total cholesterol and LDL. She has been working on dietary modifications. She admits to not being as physically active as she would like. PLAN: Will continue working on dietary modifications. Will recheck lipid panel, goal LDL to be below 190 FWS FACULTY ASSISTANT: Continues to follow [place] [facility] lab director in his up-to-date with Pap Vaccine: UTD with Tdap, declines COVID and flu vaccines at this time [facility] Medical History Endometrial polyp Anxiety Surgical History History of wisdom tooth extraction Family History Father Hypertension Diabetes PTSD (post-traumatic stress disorder) Hyperlipidemia Mother Hyperlipidemia Maternal Grandfather Cancer Daughter In good health Sister No problems noted. 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 Current occupational exposures/hazards: No Gender identity: Female Cognitive needs: No Hearing needs: No Vision needs: No Female Reproductive History Menstrual Age of Menarche: 14 Questionnaire PHQ-9 Over the last 2 weeks, how often have you been bothered by any of the following problems? 1. Little interest or pleasure in doing things: not at all 2. Feeling down, depressed, or hopeless: not at all 3. Trouble falling or staying asleep, or sleeping too much: not at all 4. Feeling tired or having little energy: several days 5. Poor appetite or overeating: not at all 6. Feeling bad about yourself - or that you are a failure or have let yourself or your family down: not at all 7. Trouble concentrating on things, such as reading the newspaper or watching television: not at all 8. Moving or speaking so slowly that other people could have noticed. Or the opposite - being so fidgety or restless that you have been moving around a lot more than usual: not at all 9. Thoughts that you would be better off or of hurting yourself in some way: not at all Total score: 1 Depression Screening Interpretation: Negative Depression Screening Done: Yes 71013 - PHQ-9 Billing: Yes Source: Developed by Drs. Ty Dorsey, Sabiha Wisdom, Rhett Nichols and colleagues, with an educational jr from [employer]. Thrive Questionnaire Date Thrive assessed: 06/23/25 I am a: Patient What is your living situation today?: I have a steady place to live Within the past 12 months, did the food you bought not last and you didn't have the money to get more?: Never true Within the past 12 months, did you worry whether your food would run out before you got money to buy more?: Never true Do you have trouble paying for medicines?: No Do you have trouble getting transportation to medical appointments?: No Do you have trouble paying your heating and electricity bill?: No Do you have trouble taking care of your child, family member or friend?: No Do you have trouble with day-to-day activities such as bathing, preparing meals, shopping, managing finances, etc.?: No Are you currently unemployed and looking for a job?: No Are you interested in more education?: No Please select the resources that you would like help with: None Currently or been in a relationship where the following occur: No concerns reported THRIVE Score: 0 AUDIT C Alcohol Use Questionnaire (AUDIT-C) 1. How often do you have a drink containing alcohol?: Never 3. How often do you have six or more drinks on one occasion?: Never Total Score: 0 ELIU-7 AMB Questionnaire ELIU-7 Date ELIU - 7 assessed: 06/23/25 Feeling nervous, anxious, or on edge: 0 = Not at all Not being able to stop or control worryin = Not at all Worrying too much about different things: 0 = Not at all Trouble relaxin = Not at all Being so restless that it is hard to sit still: 0 = Not at all Becoming easily annoyed or irritable: 0 = Not at all Feeling afraid as if something awful might happen: 0 = Not at all Total ELIU-7 score (0-4 normal; 5-9 mild; 10-14 moderate; 15-21 severe): 0 Source: Developed by Drs. Ty Dorsey, Sabiha Wisdom, Rhett Nichols and colleagues, with an educational jr from [employer]. ELIU-7 Assessment Billing ELIU-7 Assessment Tool: ELIU-7 Assessment 06010 Review of Systems Const Denies body aches, Denies chills, Denies excessive sweating, Denies fatigue, Denies fever(s) and Denies headache(s) Eyes Denies blurry vision ENT Denies dysphagia, Denies vertigo, Denies dizziness, Denies headache(s), Denies hearing loss and Denies tinnitus Card Denies chest pain, Denies chest pain with activity, Denies syncope, Denies irregular heart rhythm and Denies dyspnea Resp Denies chest congestion, Denies cough, Denies hemoptysis, Denies dyspnea and Denies wheezing GI Denies abdominal pain, Denies melena, Denies hematochezia, Denies coffee ground emesis, Denies dysphagia, Denies diarrhea, Denies nausea and Denies vomiting Denies urinary frequency, Denies dysuria, Denies urinary hesitancy and Denies urinary urgency Musc Denies arthralgias, Denies limited range of motion, Denies muscle cramps and Denies muscle weakness Skin/Breast Denies rash and Denies skin ulcer Neuro Denies Abnormal speech present, Denies confusion, Denies vertigo, Denies dizziness, Denies syncope, Denies headache(s), Denies memory loss and Denies seizure-like activity Psych Denies anxiety, Denies confusion, Denies depression, Denies memory loss, Denies panic attacks and Denies paranoia Endo Denies excessive sweating, Denies fatigue, Denies flushing, Denies polydipsia and Denies polyuria Aller/Immun Denies wheezing Physical exam (Primary Care) Vital Signs: Last Vital Signs Pulse 95 06/23/25 16:08 BP 98/64 06/23/25 16:08 Pulse Ox 98 06/23/25 16:08 Oxygen Delivery Method Room Air 06/23/25 16:08 BMI result Body Mass Index 25.9 Tobacco/Smoking Status: Tobacco use Status Tobacco use date assessed 06/23/25 06/23/25 16:13 Patient Tobacco Use Status Never used Tobacco 06/23/25 16:13 e-Cigarette/Vaping Use Never Used 06/23/25 16:13 PHQ-9: PHQ-9 Score PHQ-9: Total score 1 06/23/25 16:30 Depression Screening Interpretation: Negative Thrive Assessment: Date of Thrive Assessment Date Thrive assessed 06/23/25 06/23/25 16:13 Currently or been in a relationship where the following occur: No concerns reported Const General: cooperative, comfortable, no acute distress, alert and awake; No confusion Orientation/consciousness: oriented to person, oriented to place, patient oriented x3 and No confusion HENMT Head: Yes normocephalic Ears: external ears normal and TM's normal bilaterally Face and sinus: No sinus tenderness Mouth: Normal oral and palatal mucosa present and tongue normal Teeth and gingiva: dentition normal and gingiva normal Throat: Yes posterior oropharynx normal, Yes tonsils normal and Yes uvula midline Eyes Conjunctivae: conjunctivae normal Sclerae: sclerae normal Pupils: Equal, round and reactive pupils present EOM: EOMs intact bilaterally Direct Ophthalmoscopy: No no photophobia Neck Neck: Yes no lymphadenopathy, No tender and Yes no JVD Thyroid: Thyroid normal Carotids: no bruits Chest Chest palpation & inspection: no tenderness Resp Effort & Inspection: normal respiratory effort, no audible wheezes, not labored and no stridor Auscultation: no crackles, no rales, no rhonchi and no wheezes Cardio Jugular venous distension: no JVD Rate: regular rate, not bradycardic and not tachycardic Rhythm: regular rhythm Bruits: no carotid bruits Peripheral pulses: Peripheral pulses 2+ throughout GI Inspection: Yes normal to inspection, No abdominal wall ecchymosis and No visible herniation Palpation (GI): Soft to palpation, nontender, no guarding, not rigid and No hepatosplenomegaly present Auscultation: normoactive bowel sounds General: Yes no CVA tenderness Back/Spine/Pelvis Back: no CVA tenderness and No back tenderness Cervical Spine: cervical ROM normal Thoracic/Lumbar Spine: thoracic and lumbar spine normal to inspection, straight leg raise negative bilaterally, No thoraco-lumbar ROM limited and No lumbar spinal tenderness Skin Lesions: no lesions Rashes: no rashes Wounds: no wounds Neuro General: oriented to person, oriented to place, patient oriented x3, CN's II-XI intact bilaterally and No confusion Cranial nerves: Yes Equal, round and reactive pupils present and Yes Normal accommodation reflex present Cognition (Neuro): normal cognition Speech: No Abnormal speech present Gait exam (Neuro): Normal gait present Motor exam (neuro): 5/5 motor strength present throughout Extrem Right upper extremity: full ROM; no cyanosis Left upper extremity: full ROM; no cyanosis Right lower extremity: no edema Left lower extremity: no edema Psych Appearance: grossly normal Mental Status: mental status grossly normal Affect: normal affect Attitude: cooperative Thought process: Normal thought process present Coding Level of Care Code Est Pt Prev Care 18-39y(25007) Diagnoses Annual physical exam Z00.00 Mixed hyperlipidemia E78.2 Hyperlipidemia type: mixed hyperlipidemia Additional Codes PHQ-9 - 42573 - PHQ-9 Billing: Yes ([id number]) ELIU-7 Assessment Billing - ELIU-7 Assessment Tool: ELIU-7 Assessment [id number] ([id number]) Assessment & Plan Assessment & Plan (1) Annual physical exam: Code(s): Z00.00 - Encounter for general adult medical examination without abnormal findings Category: Medical Plan: As per HPI (2) Hyperlipidemia: Code(s): E78.5 - Hyperlipidemia, unspecified Category: Medical Qualifiers: Hyperlipidemia type: mixed hyperlipidemia Qualified Code(s): E78.2 - Mixed hyperlipidemia Plan: Patient has a history of elevated total cholesterol and LDL. Will continue to follow lipid panel. Patient has low CV risk. Advised on low-cholesterol diet Orders: Orders Complete Blood Count no Diff 06/25/25 E78.2 - Mixed hyperlipidemia Lipid Panel 06/25/25 E78.2 - Mixed hyperlipidemia Comprehensive [place]. Panel Fast 06/25/25 E78.2 - Mixed hyperlipidemia
== END 2025-06-23 16:49 | disposition home or self-care (01) ==
LOC: HO.HMCH 16:02
PROVIDERS: PCP Physician Assistant; Visit Provider Physician Assistant
DX: Z00.00 Encounter for general adult medical examination without abnormal findings (principal); E78.2 Mixed hyperlipidemia

== ENCOUNTER → 2025-06-23 16:02 | Outpatient (BNVA) | payer OTHER, SELFPAY | PROVIDERS: PCP Physician Assistant; Visit Provider Physician Assistant | DX: Z00.00 Encounter for general adult medical examination without abnormal findings (principal); E78.2 Mixed hyperlipidemia; Z13.31 Encounter for screening for depression; Z13.39 Encounter for screening examination for other mental health and behavioral disorders | CPT/HCPCS: 96127 ==

== ENCOUNTER 2025-06-25 08:54 | Outpatient (REF) | payer OTHER, SELFPAY ==
[2025-06-25 09:19] LABS: Hematocrit 40.9 % (37.0-47.0); Hemoglobin 13.3 g/dl (12.0-16.0); Mean Corpuscular HGB Conc 32.5 g/dl (31.0-35.0); Mean Corpuscular Hemoglobin 24.7 pg (27.0-33.0); Mean Corpuscular Volume 76.0 fL (80.0-98.0); NRBC Abs Auto 0.000 X10*3/uL (0.0-0.012); NRBC Pct Auto 0.0 /100WBC (0.0-0.2); Platelet Count 279 X10*3/uL (160-400); Red Blood Count 5.38 X10*6/uL (4.20-5.50); White Blood Count 6.4 X10*3/uL (4.8-10.8)
[2025-06-25 10:49] LABS: Alanine Aminotransferase 14 U/L (0-31); Albumin Level 4.7 g/dL (3.5-5.0); Alkaline Phosphatase 85 U/L (39-117); Anion Gap 13 (12-20); Aspartate Amino Transferase 18 U/L (5-31); Blood Urea Nitrogen 13 mg/dL (9-16); Calcium 8.9 mg/dL (8.4-10.2); Carbon Dioxide 24 mmol/L (22-29); Chloride 107 mmol/L (96-108); Cholesterol 246 mg/dL (<200); Estimated Glomerular Filt Rate > 60; HDL Cholesterol 60 mg/dL (>40); Potassium 4.2 mmol/L (3.3-5.1); Sodium 140 mmol/L (135-145); Total Protein 7.5 g/dL (6.5-8.0); Triglycerides 103 mg/dL (<150)
== END 2025-06-25 08:55 | disposition home or self-care (01) ==
LOC: HO.LAB 08:54
PROVIDERS: PCP Physician Assistant; Visit Provider Physician Assistant
DX: E78.2 Mixed hyperlipidemia (principal)
CPT/HCPCS: 36415; 80053; 80061; 85027